=== PATIENT | male | born 1980 | race African-American/Black ===

== ENCOUNTER 2017-12-13 02:03 | Emergency (ER) | payer MEDICARE, MEDICAID ==
[~2017-12-13] VITALS: Ht 172.7 cm; Wt 83.0 kg
[2017-12-13] MEDS ORDERED: METOCLOPRAMIDE HCL 10MG/2ML VIAL IV ONE ×2 (07:15→09:30)
[2017-12-13] MEDS ORDERED: KETOROLAC 30MG/ML VIAL IV ONE ×2 (07:15→09:30)
[2017-12-13] MEDS ORDERED: SODIUM CHLORIDE 0.9% 1,000 ML IV ONE (07:15)
[2017-12-13] MEDS ORDERED: ACETAMINOPHEN 325MG TABLET PO ONE ×2 (07:15→09:30)
[2017-12-13 11:30] VITALS: BP 138/96
== END 2017-12-13 12:05 | disposition home or self-care (01) ==
LOC: ER 02:03
DX: R51 Headache (principal); E11.9 Type 2 diabetes mellitus without complications; I10 Essential (primary) hypertension
CPT/HCPCS: 70450; 96361; 96374; 96375; 99284; J1885; J2765; J7030

== ENCOUNTER 2022-09-01 23:40 | Emergency (ER) | payer MEDICARE, MEDICAID ==
[~2022-09-01] VITALS: Ht 175.3 cm; Wt 86.7 kg
[2022-09-02] MEDS ORDERED: LORAZEPAM 2MG/ML CPJ IV ONE ×2 (00:15→02:15)
[2022-09-02] MEDS ORDERED: SODIUM CHLORIDE 0.9% 1,000 ML IV ONE (00:15)
[2022-09-02 01:19] LABS: BASOPHILS % 0.9 % (0.0-2.0); HEMOGLOBIN. 14.1 g/dL (14.0-18.0); MEAN CORPUSCULAR HEMOGLOBIN 29.5 pg (28.0-32.0); MEAN CORPUSCULAR VOLUME 85.8 fL (80.0-94.0); MONOCYTES % 8.5 % (2.0-8.0); NEUTROPHILS % 70.6 % (40.0-76.0); PLATELET 178 x1000/uL (130-400); RED BLOOD CELL COUNT 4.77 mill/uL (4.7-6.1); RED CELL DISTRIBUTION WIDTH 14.8 % (11.6-14.6)
[2022-09-02 01:50] LABS: CHLORIDE 103 mEq/L (98-107)
[2022-09-02 05:08] VITALS: BP 132/78
[2022-09-02] MEDS ORDERED: IOHEXOL-350 100 ML BOTTLE ONE (05:50)
== END 2022-09-02 05:30 | disposition home or self-care (01) ==
LOC: ER 23:40
DX: R00.0 Tachycardia, unspecified (principal); E11.9 Type 2 diabetes mellitus without complications; I10 Essential (primary) hypertension; F31.9 Bipolar disorder, unspecified
CPT/HCPCS: 36415; 71045; 71275; 76604; 80053; 82962; 83880; 84443; 84484; 85025; 93005; 93880; 96361; 96374; 96376; 99285; J2060; J7030; Q9967

== ENCOUNTER 2022-12-10 21:03 | Inpatient (IN) | payer MEDICARE, MEDICAID ==
[~2022-12-10] VITALS: Ht 175.3 cm; Wt 87.1 kg
[2022-12-10] MEDS ORDERED: ASPIRIN 81MG TABLET PO ONE (22:00)
[2022-12-10 23:01] LABS: EOSINOPHILS % 5.2 % (0.0-5.0); HEMOGLOBIN. 11.9 g/dL (14.0-18.0); LYMPHOCYTES % 25.7 % (20.0-50.0); MEAN CORPUSCULAR HEMOGLOBIN 28.7 pg (28.0-32.0); MEAN CORPUSCULAR VOLUME 84.1 fL (80.0-94.0); MEAN PLATELET VOLUME 9.4 fl (7.4-10.4); MONOCYTES % 10.1 % (2.0-8.0); PLATELET 176 x1000/uL (130-400); RED BLOOD CELL COUNT 4.16 mill/uL (4.7-6.1); RED CELL DISTRIBUTION WIDTH 13.7 % (11.6-14.6)
[2022-12-10 23:08] LABS: CHLORIDE 103 mEq/L (98-107)
[2022-12-10 23:10] LABS: PARTIAL THROMBOPLASTIN TIME 28.5 sec (23.4-31.0); PROTHROMBIN TIME 11.1 sec (9.6-11.0)
[2022-12-10] MEDS ORDERED: SODIUM CHLORIDE 0.9% 1,000 ML IV ONE (23:45)
[2022-12-11] MEDS ORDERED: DOCUSATE SODIUM 100MG CAPSULE PO PRN (01:45)
[2022-12-11] MEDS ORDERED: IPRATROPIUM/ALBUTEROL 0.5-3(2.5)MG/3ML NEB HHN PRN (01:45)
[2022-12-11] MEDS ORDERED: GUAIFENESIN 200MG/10ML SUGAR FREE UDC PO PRN (01:45)
[2022-12-11] MEDS ORDERED: MAGNESIUM/ALUMINUM HYDROXIDE/SIMETHICONE 30ML UDC PO PRN (01:45)
[2022-12-11] MEDS ORDERED: ACETAMINOPHEN 325MG TABLET PO PRN ×2 (01:45)
[2022-12-11] MEDS ORDERED: SODIUM CHLORIDE 0.9% 1,000 ML IV SCH (01:45)
[2022-12-11] MEDS ORDERED: HYDROCODONE/ACETAMINOPHEN 5/325MG TABLET PO PRN (01:45)
[2022-12-11] MEDS ORDERED: CLONIDINE 0.1MG TABLET PO PRN (01:45)
[2022-12-11] MEDS ORDERED: ONDANSETRON HCL 4MG/2ML INJ IV PRN (01:45)
[2022-12-11] MEDS ORDERED: LORAZEPAM 0.5MG TABLET PO PRN (02:00)
[2022-12-11] MEDS ORDERED: DEXTROSE 50% WATER 50ML SYRINGE IV PRN (02:15)
[2022-12-11 05:59] LABS: CLARITY URINE CLEAR (CLEAR); COLOR URINE YELLOW (YELLOW); KETONES URINE NEGATIVE (NEGATIVE); LEUKOCYTE ESTERASE URINE NEGATIVE (NEGATIVE); NITRITE URINE NEGATIVE (NEGATIVE); OCCULT BLOOD URINE NEGATIVE (NEGATIVE); PROTEIN URINE NEGATIVE (NEGATIVE); SPECIFIC GRAVITY URINE 1.011 (1.005-1.030); UROBILINOGEN URINE 0.2 E.U./dL (0.2-1.0)
[2022-12-11 06:04] LABS: SODIUM URINE RANDOM 51 mEq/L
[2022-12-11] MEDS ORDERED: POTASSIUM CHLORIDE 20MEQ TABLET SR PO NR (07:45)
[2022-12-11] MEDS: INSULIN LISPRO 100 UNITS/ML SUBCUT SCH ×4 (08:20→22:02)
[2022-12-11] MEDS: BLOOD SUGAR DIAGNOSTIC STRIP TEST SCH ×4 (08:40→21:00)
[2022-12-11] MEDS: PANTOPRAZOLE SODIUM 40 MG/VIAL IV SCH (08:59)
[2022-12-11] MEDS: AMLODIPINE 5MG TABLET PO SCH (08:59)
[2022-12-11] MEDS: ASPIRIN 81MG TABLET PO SCH (08:59)
[2022-12-11] MEDS ORDERED: ENOXAPARIN 40MG/0.4ML SYR SUBCUT SCH (09:00)
[2022-12-11 14:30] VITALS: BP 131/87
[2022-12-11 15:36] LABS: HEMATOCRIT. 42.2 % (42.0-52.0); MEAN CORPUSCULAR VOLUME 84.3 fL (80.0-94.0); MEAN PLATELET VOLUME 9.7 fl (7.4-10.4); PLATELET 203 x1000/uL (130-400); RED CELL DISTRIBUTION WIDTH 14.1 % (11.6-14.6)
[2022-12-11 16:00] VITALS: BP 124/80
[2022-12-11 16:06] LABS: CREATINE KINASE 327 IU/L (39-308)
[2022-12-11] MEDS ORDERED: CARV6.2548 PO (16:56)
[2022-12-11] MEDS ORDERED: QUET100T PO (16:56)
[2022-12-11] MEDS ORDERED: ATOR10TA69 PO (16:56)
[2022-12-11] MEDS ORDERED: LOSA100T4 MT (16:56)
[2022-12-11] MEDS ORDERED: METF-414 PO (16:56)
[2022-12-11] MEDS ORDERED: NALOXONE HCL 0.4MG/ML VIAL IV PRN (17:00)
[2022-12-11] MEDS ORDERED: PNEUMOCOCCAL VACCINE IM SCH (18:00)
[2022-12-11 20:00] VITALS: BP 124/85
[2022-12-11 20:53] LABS: PLATELET ESTIMATE NORMAL
[2022-12-11 22:00] LABS: *AMPHETAMINES SCREEN URINE NEGATIVE (NEGATIVE); *BARBITURATES SCREEN URINE NEGATIVE (NEGATIVE); *BENZODIAZEPINES SCREEN URINE NEGATIVE (NEGATIVE); *COCAINE SCREEN URINE NEGATIVE (NEGATIVE); CANNABINOID URINE SCREEN NEGATIVE (NEGATIVE); METHADONE URINE SCREEN NEGATIVE (NEGATIVE); OPIATES URINE SCREEN NEGATIVE (NEGATIVE); PHENCYCLIDINE URINE SCREEN NEGATIVE (NEGATIVE)
[2022-12-11] MEDS: QUETIAPINE FUMARATE 50MG TABLET PO SCH (22:23)
[2022-12-11] MEDS: TRAZODONE HCL 50MG TABLET PO SCH (22:23)
[2022-12-12] MEDS: LORAZEPAM 0.5MG TABLET PO PRN (00:27)
[2022-12-12 05:30] VITALS: BP 127/85
[2022-12-12] MEDS: BLOOD SUGAR DIAGNOSTIC STRIP TEST SCH ×4 (05:45→21:24)
[2022-12-12] MEDS: INSULIN LISPRO 100 UNITS/ML SUBCUT SCH ×4 (05:46→21:28)
[2022-12-12] MEDS ORDERED: REGADENOSON 0.4 MG/5 ML IV ONE ×2 (07:30→11:26)
[2022-12-12 08:00] VITALS: BP 149/68
[2022-12-12] MEDS: ENOXAPARIN 30MG/0.3ML SYR SUBCUT SCH (10:04)
[2022-12-12] MEDS: AMLODIPINE 5MG TABLET PO SCH (10:04)
[2022-12-12] MEDS: ASPIRIN 81MG TABLET PO SCH (10:04)
[2022-12-12] MEDS: PANTOPRAZOLE SODIUM 40 MG/VIAL IV SCH (10:05)
[2022-12-12 12:00] VITALS: BP 136/93
[2022-12-12 16:00] VITALS: BP_SYST 139; BP_DIAS 101; BP_DIAS 99
[2022-12-12 16:12] LABS: BASOPHILS % 0.8 % (0.0-2.0); EOSINOPHILS % 2.7 % (0.0-5.0); HEMATOCRIT. 37.4 % (42.0-52.0); HEMOGLOBIN. 12.4 g/dL (14.0-18.0); MEAN CORPUSCULAR VOLUME 84.2 fL (80.0-94.0); MEAN PLATELET VOLUME 9.6 fl (7.4-10.4); MONOCYTES % 6.6 % (2.0-8.0); NEUTROPHILS % 66.9 % (40.0-76.0); PLATELET 179 x1000/uL (130-400); RED BLOOD CELL COUNT 4.44 mill/uL (4.7-6.1); RED CELL DISTRIBUTION WIDTH 13.7 % (11.6-14.6)
[2022-12-12 16:19] LABS: CHLORIDE 101 mEq/L (98-107)
[2022-12-12 16:34] LABS: CREATINE KINASE 261 IU/L (39-308); CREATINE KINASE MB FRACTION 1.2 ng/mL (0.5-3.6); HDL CHOLESTEROL 41 mg/dL (40-59); LDL CHOLESTEROL 119 mg/dL (5-100); T4 FREE 0.87 ng/dL (0.76-1.46)
[2022-12-12] MEDS ORDERED: POTASSIUM CHLORIDE 20MEQ TABLET SR PO NR (17:45)
[2022-12-12] MEDS: SODIUM CHLORIDE 0.45% 1,000 ML IV SCH (18:06)
[2022-12-12 20:00] VITALS: BP 142/86
[2022-12-12] MEDS: TRAZODONE HCL 50MG TABLET PO SCH (21:23)
[2022-12-12] MEDS: QUETIAPINE FUMARATE 50MG TABLET PO SCH (21:23)
[2022-12-12 23:18] LABS: CREATINE KINASE MB FRACTION 1.2 ng/mL (0.5-3.6)
[2022-12-13] VITALS: BP 148/97
[2022-12-13] MEDS: LORAZEPAM 0.5MG TABLET PO PRN (00:24)
[2022-12-13 05:41] LABS: EOSINOPHILS % 4.8 % (0.0-5.0); HEMATOCRIT. 38.3 % (42.0-52.0); HEMOGLOBIN. 12.6 g/dL (14.0-18.0); LYMPHOCYTES % 31.7 % (20.0-50.0); MEAN CORPUSCULAR HEMOGLOBIN 27.9 pg (28.0-32.0); MEAN CORPUSCULAR VOLUME 85.1 fL (80.0-94.0); MEAN PLATELET VOLUME 9.5 fl (7.4-10.4); MONOCYTES % 10.3 % (2.0-8.0); NEUTROPHILS % 52.2 % (40.0-76.0); PLATELET 187 x1000/uL (130-400); RED BLOOD CELL COUNT 4.51 mill/uL (4.7-6.1); RED CELL DISTRIBUTION WIDTH 13.7 % (11.6-14.6)
[2022-12-13 05:44] LABS: CHLORIDE 104 mEq/L (98-107)
[2022-12-13] MEDS: SODIUM CHLORIDE 0.45% 1,000 ML IV SCH (05:55)
[2022-12-13] MEDS: BLOOD SUGAR DIAGNOSTIC STRIP TEST SCH ×2 (05:55→11:40)
[2022-12-13 06:06] LABS: CREATINE KINASE MB FRACTION 1.3 ng/mL (0.5-3.6)
[2022-12-13] MEDS: INSULIN LISPRO 100 UNITS/ML SUBCUT SCH ×2 (07:10→12:05)
[2022-12-13] MEDS ORDERED: POTASSIUM CHLORIDE 20MEQ TABLET SR PO NR (07:45)
[2022-12-13 08:13] LABS: *CREATININE RANDOM URINE 57.5 mg/dL (Not Estab.); MICROALBUMIN RANDOM URINE <3.0 ug/mL (Not Estab.)
[2022-12-13 08:35] VITALS: BP 137/97
[2022-12-13] MEDS: AMLODIPINE 5MG TABLET PO SCH (08:41)
[2022-12-13] MEDS: ASPIRIN 81MG TABLET PO SCH (08:41)
[2022-12-13] MEDS: ENOXAPARIN 30MG/0.3ML SYR SUBCUT SCH (08:44)
[2022-12-13] MEDS ORDERED: FAMOTIDINE 20MG TABLET PO SCH (09:00)
[2022-12-13 09:07] LABS: ANTI-NUCLEAR ANTIBODIES DIRECT Negative (Negative); HIV SCREEN 4G Non Reactive (Non Reactive)
[2022-12-13] MEDS ORDERED: AMLODIPINE 5MG TABLET PO NR (09:30)
[2022-12-13] MEDS ORDERED: AMLO10TA80 PO ×2 (09:43→10:04)
[2022-12-14] MEDS ORDERED: ENOXAPARIN 40MG/0.4ML SYR SUBCUT SCH (09:00)
[2022-12-14] MEDS ORDERED: AMLODIPINE 10MG TABLET PO SCH (09:00)
== END 2022-12-13 13:59 | disposition home or self-care (01) | DRG 918 ==
LOC: ER 21:03 → MICUSO 12-11 00:50 → EDBEDREQTM 12-11 00:52 → EDBEDREQDT 12-11 00:52 → EDBEDREQ 12-11 00:52 → 7EST 12-11 13:27
PROVIDERS: ADMIT Internal Medicine; ATTEND Internal Medicine
DX: T46.5X1A Poisoning by other antihypertensive drugs, accidental (unintentional), initial encounter (principal); N17.9 Acute kidney failure, unspecified; M94.0 Chondrocostal junction syndrome [Tietze]; F41.9 Anxiety disorder, unspecified; F31.9 Bipolar disorder, unspecified; E87.6 Hypokalemia; N18.9 Chronic kidney disease, unspecified; E11.22 Type 2 diabetes mellitus with diabetic chronic kidney disease; D63.1 Anemia in chronic kidney disease; I12.9 Hypertensive chronic kidney disease with stage 1 through stage 4 chronic kidney disease, or unspecified chronic kidney disease; E78.5 Hyperlipidemia, unspecified; Z79.899 Other long term (current) drug therapy; Z79.84 Long term (current) use of oral hypoglycemic drugs; Z79.82 Long term (current) use of aspirin; Z79.4 Long term (current) use of insulin; Y92.89 Other specified places as the place of occurrence of the external cause
CPT/HCPCS: 36415; 71045; 76770; 78452; 80053; 80061; 80305; 81003; 82043; 82550; 82553; 82570; 82962; 83036; 83735; 83880; 83930; 83935; 84100; 84300; 84439; 84443; 84484; 85025; 85379; 86038; 86160; 87389; 93005; 93017; 93306; 93970; 99285; A9500; C9113; J1650; J1815; J2785; J7030

== ENCOUNTER 2023-03-13 19:42 | Emergency (ER) | payer MEDICARE, MEDICAID ==
[~2023-03-13] VITALS: Ht 175.3 cm; Wt 84.0 kg
[~2023-03-13 19:42] MED LIST: AMLO10TA80 PO; ATOR10TA69 PO; CARV6.2548 PO; LOSA100T4 MT; METF-414 PO; QUET100T PO
[2023-03-13 19:46] VITALS: O2SAT 98
[2023-03-13 20:59] LABS: CHLORIDE 105 mEq/L (98-107)
[2023-03-13 21:04] LABS: BASOPHILS % 0.5 % (0.0-2.0); EOSINOPHILS % 2.6 % (0.0-5.0); HEMATOCRIT. 40.8 % (42.0-52.0); HEMOGLOBIN. 13.2 g/dL (14.0-18.0); LYMPHOCYTES % 15.2 % (20.0-50.0); MEAN CORPUSCULAR HEMOGLOBIN 27.3 pg (28.0-32.0); MEAN CORPUSCULAR VOLUME 84.3 fL (80.0-94.0); MEAN PLATELET VOLUME 8.8 fl (7.4-10.4); MONOCYTES % 6.8 % (2.0-8.0); NEUTROPHILS % 74.9 % (40.0-76.0); PLATELET 195 x1000/uL (130-400); RED BLOOD CELL COUNT 4.84 mill/uL (4.7-6.1); RED CELL DISTRIBUTION WIDTH 14.9 % (11.6-14.6)
[2023-03-14 03:00] VITALS: BP 148/103; PULSE 69; RESP 18; TEMP 98.6
== END 2023-03-14 03:18 | disposition home or self-care (01) ==
LOC: ER 19:42
DX: R07.89 Other chest pain (principal); I10 Essential (primary) hypertension; E11.9 Type 2 diabetes mellitus without complications; Z86.59 Personal history of other mental and behavioral disorders
CPT/HCPCS: 36415; 71045; 80053; 84484; 85025; 93005; 99285

== ENCOUNTER 2023-06-10 02:50 | Emergency (ER) | payer MEDICARE, MEDICAID ==
[~2023-06-10] VITALS: Ht 175.3 cm; Wt 82.7 kg
[~2023-06-10 02:50] MED LIST changes: +LOSA-415 MT; -LOSA100T4 MT
[2023-06-10 03:08] VITALS: BP 103/62; PULSE 91; RESP 16; TEMP 98.6; O2SAT 96
[2023-06-10 03:27] LABS: BASOPHILS % 0.9 % (0.0-2.0); HEMATOCRIT. 38.9 % (42.0-52.0); HEMOGLOBIN. 12.9 g/dL (14.0-18.0); LYMPHOCYTES % 26.2 % (20.0-50.0); MEAN CORPUSCULAR HGB CONC 33.3 g/dL (31.0-37.0); MEAN CORPUSCULAR VOLUME 81.2 fL (80.0-94.0); MEAN PLATELET VOLUME 8.5 fl (7.4-10.4); MONOCYTES % 6.3 % (2.0-8.0); NEUTROPHILS % 64.6 % (40.0-76.0); PLATELET 219 x1000/uL (130-400); RED BLOOD CELL COUNT 4.78 mill/uL (4.7-6.1); RED CELL DISTRIBUTION WIDTH 15.6 % (11.6-14.6); WHITE BLOOD COUNT 6.7 x1000/uL (4.5-11.0)
[2023-06-10 03:31] LABS: CHLORIDE 103 mEq/L (98-107); INDEX HEMOLYSI 1 (1-3); INDEX ICTERIC 1 (1-4); INDEX LIPEMIC 1 (1-3); POTASSIUM 3.9 mEq/L (3.5-5.1); SODIUM 135 mEq/L (136-145)
[2023-06-10 03:40] LABS: ALANINE AMINOTRANSFERASE 85 IU/L (13-61); ALBUMIN 4.1 g/dL (3.4-5.0); ASPARTATE AMINOTRANSFERASE 60 IU/L (15-37); BILIRUBIN TOTAL 0.6 mg/dL (0.1-1.0); CALCIUM 8.3 mg/dL (8.5-10.1); CARBON DIOXIDE 24 mEq/L (21-32); CREATININE 1.4 mg/dL (0.6-1.3); GLUCOSE 198 mg/dL (70-105); NT PRO B-TYPE NATRIURETIC PEP 10 pg/mL (5-125); PROTEIN TOTAL 7.7 g/dL (6.0-8.3); TROPONIN I HIGH SENSITIVITY 6 ng/L (<78); UREA NITROGEN BLOOD 29 mg/dL (7-21)
== END 2023-06-10 07:35 | disposition left against medical advice (07) ==
LOC: ER 02:50
DX: Z53.21 Procedure and treatment not carried out due to patient leaving prior to being seen by health care provider (principal); I49.9 Cardiac arrhythmia, unspecified
CPT/HCPCS: 36415; 71045; 80053; 83880; 84484; 85025; 93005; 99281